=== PATIENT | male | born 1960 | race Caucasian/White ===

== ENCOUNTER 2020-07-13 21:31 | Emergency (ER) | payer BC, OTHER ==
[2020-07-13] MEDS ORDERED: Ketorolac 30 MG/ML SDV IM ONE (23:05)
[2020-07-13] MEDS ORDERED: Acetaminophen/oxyCODONE 325-5 MG Tab PO ONE (23:05)
--- NOTE | 2020-07-13 23:06 | EDM.PDOC ---
ED HPI GENERAL MEDICAL PROBLEM - General Chief Complaint: Back Pain or Injury Stated Complaint: RIB PAIN Time Seen by Provider: 07/13/20 22:55 - History of Present Illness INITIAL COMMENTS - FREE TEXT/NARRATIVE: History of present illness: [] Patient has severe pain in the right lower posterior chest wall. He fell and bruised his right ribs tonight. He has trouble breathing because of it and hurts to breathe. He is a smoker. Review of systems: As per history of present illness and below otherwise all systems reviewed and negative. Past medical history: As per history of present illness and as reviewed below otherwise noncontributory. Surgical history: As per history of present illness and as reviewed below otherwise noncontributory. Social history: No reported history of drug or alcohol abuse. Family history: As per history of present illness and as reviewed below otherwise noncontributory. Physical exam: Constitutional - well developed, well-nourished and in no acute distress HEENT - normocephalic, no evidence of trauma - external nose and mouth normal - no mass in neck and no JVD - mucosae moist EYES - full EOM, PERRL, no icterus - no evidence of inflammation, injection, or drainage Respiratory -bruise in the right posterior thorax in the lower ribs at the mid scapular to posterior axillary line. No respiratory distress, equal bilateral expansion, lungs clear to auscultation and no abnormal lung sounds Cardiovascular - Regular Rhythm with S1 and S2 appreciated and no murmur, gallop or rub. GI - abdomen soft without distension or organomegaly - normal bowel sounds - no guard or rebound Musculoskeletal no gross deformity of long bones or joints - no tenderness, swelling or edema Neurologic - Alert and oriented times four - CN II-XII grossly intact - motor sensory and coordination symmetrically normal Psychiatric - appropriate mood and affect with normal thought content Hematologic - No petechiae or purpura - mucosa appropriate color and sclera not pale - normal nail bed color and refill Integument - no rash or evidence of trauma - normal turgor Diagnostics: [] Therapeutics: [] Impression: [] Plan: [] Definitive disposition and diagnosis as appropriate pending reevaluation and review of above. Right Thoracic Pain Score (Numeric/FACES): 5 - Related Data Allergies Allergy/AdvReac Type Severity Reaction Status Date / Time No Known Allergies Allergy Verified 07/13/20 22:16 Home Meds: Home Meds Acetaminophen/oxyCODONE [Percocet 325-5 MG] 2 tab PO Q4HR PRN #20 tab 07/13/20 [Rx] Past Medical History HEENT History: Reports: Impaired Vision - Infectious Disease History Infectious Disease History: Reports: Chicken Pox, Measles, Mumps - Past Surgical History GI Surgical History: Reports: Hernia Repair/Other Musculoskeletal Surgical History: Reports: Other (See Below) Other Musculoskeletal Surgeries/Procedures:: knee surgery Social & Family History - Family History Family Medical History: No Pertinent Family History - Recreational Drug Use Recreational Drug Use: No ED ROS GENERAL - Review of Systems Review Of Systems: Comprehensive ROS is negative, except as noted in HPI. ED EXAM, GENERAL - Physical Exam Exam: See Below Free Text/Narrative:: My physical exam is in the HPI Course - Vital Signs Last Recorded V/S: Last Vital Signs Temp 36.4 C 07/13/20 22:08 Pulse 74 07/13/20 22:08 Resp 16 07/13/20 22:08 BP 112/75 07/13/20 22:08 Pulse Ox 96 07/13/20 22:08 - Orders/Labs/Meds Meds: Medications Discontinued Medications Generic Name Dose Route Start Last Admin Trade Name Freq PRN Reason Stop Dose Admin Ketorolac Tromethamine 30 mg 07/13/20 23:05 07/13/20 23:18 Ketorolac 30 Mg/Ml Sdv IM 07/13/20 23:06 30 mg ONETIME ONE Administration Oxycodone/Acetaminophen 2 tab 07/13/20 23:05 07/13/20 23:19 Acetaminophen/Oxycodone 325-5 Mg Tab PO 07/13/20 23:06 2 tab ONETIME ONE Administration Departure - Departure Time of Disposition: 00:10 Disposition: Home, Self-Care 01 Clinical Impression: Fracture of rib of right side - Discharge Information Prescriptions: Acetaminophen/oxyCODONE [Percocet 325-5 MG] 2 tab PO Q4HR PRN #20 tab PRN Reason: Pain (Severe 7-10) Instructions: Rib Fracture, [id number] Referrals: PCP,None [Primary Care Provider] - Forms: ED Department Discharge Additional Instructions: Return if worse. Deep breath several times a day and at the end of the breath try to breathe and even more. You can buy a spirometer if you are not able to do that or drink through a straw and drink thick shakes. [facility] [address] [place] [address] [facility] [address] [place] [address] The following information is given to patients seen in the emergency department who are being discharged to home. This information is to outline your options for follow-up care. We provide all patients seen in our emergency department with a follow-up referral. The need for follow-up, as well as the timing and circumstances, are variable depending upon the specifics of your emergency department visit. If you don't have a primary care physician on staff, we will provide you with a referral. We always advise you to contact your personal physician following an emergency department visit to inform them of the circumstance of the visit and for follow-up with them and/or the need for any referrals to a consulting specialist. The emergency department will also refer you to a specialist when appropriate. This referral assures that you have the opportunity for follow-up care with a specialist. All of these measure are taken in an effort to provide you with optimal care, which includes your follow-up. Under all circumstances we always encourage you to contact your private physician who remains a resource for coordinating your care. When calling for follow-up care, please make the office aware that this follow-up is from your recent emergency room visit. If for any reason you are refused follow-up, please contact the [facility] Emergency Department at and asked to speak to the emergency department charge nurse. Sepsis Event Note (ED) - Evaluation Sepsis Screening Result: No Definite Risk - Focused Exam Vital Signs: Vital Signs Temp Pulse Resp BP Pulse Ox 07/13/20 22:08 36.4 C 74 16 112/75 96
--- NOTE | 2020-07-14 00:05 | CR ---
INDICATION: Chest pain after trauma TECHNIQUE: Chest radiograph 2 views COMPARISON: None FINDINGS: Mediastinum: The mediastinum is normal in appearance. The heart silhouette is normal in size and morphology. Lung: Bilateral pulmonary hyperinflation and lucency noted, suggestive of severe pulmonary emphysema. No sign of pleural effusion seen. No pneumothorax is identified. Bone and Soft tissue: Unremarkable for age. IMPRESSION: 1. Bilateral pulmonary hyperinflation and lucency noted, suggestive of severe pulmonary emphysema. Dictated by Braxton Garcia MD @ 07/14/2020 12:02:54 AM Dictated by: Braxton Garcia MD @ 07/14/2020 00:02:59 (Electronically Signed)
[2020-07-14 00:28] VITALS: BP 134/75; PULSE 72
== END 2020-07-14 00:29 | disposition home or self-care (01) ==
LOC: MW.ED 21:31
DX: S22.31XA Fracture of one rib, right side, initial encounter for closed fracture (principal); F17.200 Nicotine dependence, unspecified, uncomplicated; W18.39XA Other fall on same level, initial encounter
CPT/HCPCS: 71046; 96372; 99283; A9270; J1885